=== PATIENT | male | born 1960 | race Hispanic/Latino ===

== ENCOUNTER 2017-06-11 12:42 | Emergency (ER) | payer SELFPAY ==
[~2017-06-11] VITALS: Ht 170.2 cm; Wt 75.0 kg
[2017-06-11] MEDS ORDERED: VALTREX1 GM PO (13:07)
[2017-06-11 13:14] VITALS: BP 155/88
== END 2017-06-11 13:20 | disposition home or self-care (01) | DRG 596 ==
LOC: ED 12:42
DX: B02.9 Zoster without complications (principal); M54.5 Low back pain